=== PATIENT | female | born 1960 | race Caucasian/White ===

== ENCOUNTER 2021-07-16 17:01 | Emergency (ER) | payer MEDICAID ==
[~2021-07-16] VITALS: Ht 160 cm; Wt 83.9 kg
[2021-07-16 17:11] VITALS: BP 129/68
--- NOTE | 2021-07-16 17:16 | NUR ---
PT TO LOBBY.
--- NOTE | 2021-07-16 18:57 | NUR ---
PT AMBULATED TO ER BED 3 WITH A STEADY GAIT ACCOMPANIED BY MOTHER.
--- NOTE | 2021-07-16 19:02 | NUR ---
61 Y/O FEMALE C/O LEFT SHOULDER PAIN 11/15 DESCRIBES ACHING RADIATES TO LEFT ARM S/P FALLING AT HOME X15 DAYS. DENIES HEAD INJURY. DENIES LOC. PT REPORTS TAKING MOTRIN WITH NO RELIEF. DENIES FEVER/CHILLS. DENIES N/V/D. PMH: DM, HTN NKA
--- NOTE | 2021-07-16 19:17 | NUR ---
GAVE REPORT TO LENNY PEOPLES. TRANSFER OF CARE AT THIS TIME.
[2021-07-16 20:35] VITALS: BP 129/68
--- NOTE | 2021-07-16 20:36 | NUR ---
Patient discharged with v/s stable. Written and verbal after care instructions given and explained. Patient verbalized understanding. Ambulatory with steady gait. All questions addressed prior to discharge. Advised to follow up with PMD.
== END 2021-07-16 20:25 | disposition home or self-care (01) ==
LOC: MED 17:01
DX: M25.512 Pain in left shoulder (principal); E11.9 Type 2 diabetes mellitus without complications; I10 Essential (primary) hypertension
CPT/HCPCS: 73030; 99283